=== PATIENT | female | born 1985 | race Caucasian/White ===

== ENCOUNTER → 2016-06-18 | Outpatient (CLI) | payer OTHER ==
[~2016-06-18] MED LIST: BUSP15TA70 PO; CYCL5TAB PO; LEVOIUD; MULT-506 PO; ONDA4TAB46 PO; RIZA10TA18 PO
== END | disposition home or self-care (01) ==
LOC: C.PAPS 12:05
PROVIDERS: ATTEND Obstetrics & Gynecology
DX: Z01.419 Encounter for gynecological examination (general) (routine) without abnormal findings (principal)

== ENCOUNTER 2017-05-20 08:20 | Emergency (ER) | payer OTHER ==
[~2017-05-20] VITALS: Ht 165.1 cm; Wt 85.0 kg
[2017-05-20 08:24] VITALS: Ht 165.1 cm; Wt 85.0 kg
[2017-05-20] MEDS ORDERED: IBUPROFEN 600 MG TAB PO STA (08:33)
--- NOTE | 2017-05-20 09:42 | DIAGNOSTIC IMAGING REPORT ---
R ANKLE MIN 3 VIEWS ROUTINE HISTORY: 32 years-old Female ankle injury acute right ankle pain status post trauma COMPARISON: None available TECHNIQUE: 3 views of the right ankle FINDINGS: Distal tibia, fibula and talus appear intact. No osteochondral defect. 4 mm acute avulsion fracture fragment is noted involving the base of the fifth metatarsal which is displaced approximately 3 mm. Mild associated soft tissue swelling. Mild soft tissue swelling is also noted about the ankle. IMPRESSION: 4 mm acute avulsion fracture involves the base of the fifth metatarsal with associated soft tissue swelling. The above report was generated using voice recognition software. It may contain grammatical, syntax or spelling errors. Electronically signed by: Zeke Thoams M.D. 05/20/2017 9:41 AM Dictated Date/Time: 05/20/2017 9:39 AM
--- NOTE | 2017-05-20 09:53 | EMERGENCY ROOM VISIT NOTE ---
ED Visit Note First contact with patient: 08:29 CHIEF COMPLAINT: Right Ankle injury HISTORY OF PRESENT ILLNESS: This 32-year-old female patient sustained an injury to the right ankle with a twisting, inversion motion ago. Complains of swelling and pain. The patient states he was too painful to bear weight on the right ankle. The patient denies any foot pain or knee pain. The patient denies any prior injury to her right ankle. She has seen Dr. Charity Boston in the past for hand injury. REVIEW OF SYSTEMS: 6 system review was performed and was negative unless stated otherwise in history of present illness. PMH: No prior significant ankle injury. The patient is generally healthy with no chronic medical problems or a history of major surgery. SOCIAL HISTORY: Patient lives with her fianc. The patient denies any tobacco use but admits to occasional alcohol use. PHYSICAL EXAM: Vital Signs: Were reviewed Reviewed Nurse's notes. GENERAL: 32- year-old white female appears in no acute distress. MENTAL STATUS: Alert, oriented, and cooperative. RIGHT ANKLE: The ankle is swollen and tender over the lateral aspect but the skin is intact and there is no ligamentous instability. There is no deformity. The foot and toes are warm and well- perfused. Sensation to pain and light touch is intact. EMERGENCY DEPARTMENT COURSE: The patient was evaluated. The patient was given Motrin 600 mg by mouth for pain. X-ray of the right ankle was ordered interpreted by the radiologist and myself. DIAGNOSTICS:R ANKLE MIN 3 VIEWS ROUTINE HISTORY: 32 years-old Female ankle injury acute right ankle pain status post trauma COMPARISON: None available TECHNIQUE: 3 views of the right ankle FINDINGS: Distal tibia, fibula and talus appear intact. No osteochondral defect. 4 mm acute avulsion fracture fragment is noted involving the base of the fifth metatarsal which is displaced approximately 3 mm. Mild associated soft tissue swelling. Mild soft tissue swelling is also noted about the ankle. IMPRESSION: 4 mm acute avulsion fracture involves the base of the fifth metatarsal with associated soft tissue swelling. The above report was generated using voice recognition software. It may contain grammatical, syntax or spelling errors. Electronically signed by: Zeke Thomas M.D. 05/20/2017 9:41 AM The patient was informed of the findings. The patient was placed in a postop shoe and given crutches. The patient was discharged home in stable condition. DIAGNOSIS: Right fifth metatarsal fracture DISCHARGE INSTRUCTIONS: Ibuprofen 600 mg every 6 hours with food for pain. Ice and elevation as much as possible over the next 24 hours. Wear postop shoe and use crutches for ambulation until evaluated by orthopedics. Call [facility] today for follow-up appointment. Off work until evaluated by orthopedics. Problem List Medical Problems: (1) Chronic urinary tract infection Status: Chronic (2) Migraine variants, not intractable Status: Chronic (3) Urin Tract Infection Nos Status: Resolved (4) Vitamin D deficiency Status: Chronic Current/Historical Medications Scheduled Buspirone Hcl (Buspar), 10 TAB PO BID Rizatriptan Benzoate (Maxalt), 10 MG PO PRN Scheduled PRN Cyclobenzaprine Hcl (Flexeril), 1 TAB PO TID PRN for Muscle Spasms Ondansetron Hcl (Zofran), 4 MG PO Q4H PRN for Nausea Miscellaneous Medications Levonorgestrel (Iud) (Mirena) Allergies Coded Allergies: No Known Allergies (Unverified , 05/20/17) Vital Signs Date Time Temp Pulse Resp B/P (MAP) Pulse Ox O2 Delivery O2 Flow Rate FiO2 05/20/17 08:24 37.0 89 18 129/88 100 Room Air Medications Administered Medications (Trade) Dose Ordered Sig/Radha Route Start Time Stop Time Status Last Admin Dose Admin Ibuprofen (Motrin Tab) 600 mg NOW STAT PO 05/20/17 08:33 05/20/17 08:35 DC 05/20/17 08:51 600 MG Departure Information Referrals RV. Ríos MD (PCP) Patient Instructions My [facility]
[2017-05-20 10:48] VITALS: BP 121/81; PULSE 81; TEMP 37; O2SAT 100
[2017-05-23] MEDS ORDERED: IBUP-1450 PO (08:35)
== END 2017-05-20 10:49 | disposition home or self-care (01) ==
LOC: C.EDB 08:22 → C.EDA 10:49
DX: S92.351A Displaced fracture of fifth metatarsal bone, right foot, initial encounter for closed fracture (principal); X58.XXXA Exposure to other specified factors, initial encounter; Z87.440 Personal history of urinary (tract) infections; Z79.899 Other long term (current) drug therapy

== ENCOUNTER 2017-10-08 22:53 | Emergency (ER) | payer OTHER ==
[~2017-10-08] VITALS: Ht 165.1 cm; Wt 85.9 kg
[~2017-10-08 22:53] MED LIST changes: +IBUP-1450 PO; +LEVO1IUD2; -LEVOIUD; -MULT-506 PO
[2017-10-08 23:07] VITALS: TEMP 37.2; Ht 165.1 cm; Wt 85.9 kg
--- NOTE | 2017-10-08 23:41 | EMERGENCY ROOM VISIT NOTE ---
History Report prepared by Deborah: Macario Hdez Under the Supervision of: Dr. Natalie Mcwilliams D.O. First contact with patient: 23:25 Chief Complaint: ABDOMINAL PAIN Stated Complaint: ABDOMEN PAIN Nursing Triage Summary: Pt c/o abdominal pain the past few days, right side back radiates to rib and lower right abdomen. History of Present Illness The patient is a 32 year old female who presents to the Emergency Room with complaints of constant RLQ abdominal pain beginning today. The patient states that she had back pain two days ago that wrapped around to her right abdomen. She notes that her pain started quickly, which caused her think that she had a kidney stone. She reports that she had eaten a yogurt and a Bryce[employer] cup prior to the onset of her pain. The patient states that her pain then resolved on its own. She notes that when she got home, she ate a rice crispy treat, which seemed to bring her pain back. She reports that she woke up tonight with RLQ abdominal pain. The patient states that she thought she was constipated, and notes that she took stool softener which caused her to have three bowel movements. She also complains of vomiting and frequent burping, but denies any vaginal discharge, diarrhea, urinary symptoms, leg cramping, leg swelling, and fever. She reports that she has a history of anxiety, acid reflux, migraines, and has an IUD placed. The patient states that she gets occasional irregular periods, with her last period being two weeks ago. She notes that she saw her PCP today and has an US scheduled for tomorrow. She reports that many members of her family on her mother's side, including her mother, have had cholecystectomies. She rates her pain as a 4/10. Source of History: patient Onset: today Position: abdomen (RLQ) Symptom Intensity: 4/10 Timing: constant Associated Symptoms: + vomiting, + back pain, No fevers, No diarrhea, No urinary symptoms Note: The patient also complains of frequent burping. She also denies any vaginal discharge, leg cramping, and leg swelling. Review of Systems See HPI for pertinent positives & negatives. A total of 10 systems reviewed and were otherwise negative. Past Medical & Surgical Medical Problems: (1) Acid reflux (2) Anxiety (3) Chronic urinary tract infection (4) IUD (intrauterine device) in place (5) Migraine variants, not intractable (6) Urin Tract Infection Nos (7) Vitamin D deficiency Family History FHx: cholecystectomy Gallbladder disease Social History Smoking Status: Never Smoker Marital Status: in relationship Housing Status: lives with significant other Occupation Status: employed Current/Historical Medications Scheduled Buspirone Hcl (Buspar), 10 TAB PO BID Rizatriptan Benzoate (Maxalt), 10 MG PO PRN Scheduled PRN Cyclobenzaprine Hcl (Flexeril), 1 TAB PO TID PRN for Muscle Spasms Ibuprofen (Motrin), 600 MG PO q4-6 hrs PRN for Pain Ondansetron Hcl (Zofran), 4 MG PO Q4H PRN for Nausea Miscellaneous Medications Levonorgestrel (Iud) (Mirena) Allergies Coded Allergies: No Known Allergies (Unverified , 07/04/17) Physical Exam Vital Signs Date Time Temp Pulse Resp B/P (MAP) Pulse Ox O2 Delivery O2 Flow Rate FiO2 10/09/17 04:15 86 16 118/74 98 Room Air 10/09/17 03:21 90 16 106/69 97 Room Air 10/09/17 01:54 88 18 118/73 100 Room Air 10/09/17 00:28 89 18 122/74 97 Room Air 10/08/17 23:07 37.2 113 18 121/77 97 Room Air Physical Exam HEENT: Head - normocephalic and atraumatic Pupils are equal, round, and reactive to light. Extraocular eye muscles are intact, and sclera are anicteric. Nose - moist nasal mucosa without discharge. Mouth - moist buccal mucosa. Oropharynx is nonerythematous and there is no tonsillar exudate or edema noted. Neck: Supple; no JVD, nuchal rigidity, cervical lymphadenopathy. Heart: Regular rate and rhythm. There is a normal S1 and S2 with no murmurs, clicks, or gallops appreciated. Lungs: Clear to auscultation bilaterally with no wheezes, rales, or rhonchi. Abdomen: Soft, nondistended, with good bowel sounds. There are no palpable pulsatile masses or hepatosplenomegaly. There is no guarding, rigidity, or rebound noted. Pain to palpation of the RUQ and RLQ over McBurney's point. Extremities: No evidence of cyanosis, clubbing, or edema. There are easily palpable peripheral pulses. Skin: warm with good turgor and no rashes, diaphoretic. Medical Decision & Procedures ER Provider Diagnostic Interpretation: Radiology results as stated below per my review and the radiologist's interpretation: US PELVIC/ENDOVAG: Comparison: CT dated 11/26/2012 and ultrasound dated 05/05/11. Retroverted uterus with an intrauterine device within the endometrial cavity. Ovarian flow seen to bilateral ovaries with bilateral follicles. There is a right adnexal mass measuring up to 3.4cm with some areas of increased echogenicity which may reflect a dermoid. Some vascularity seen at the interface with the right ovary. Other possibilities include a pedunculated myoma , hemorrhagic paraovarian cyst or possibly endometrioma. Some complex free fluid seen within the right adnexa. Radiologist: Enoch Mcmillan M.D. US APPENDIX: Comparison: Ultrasound dated 05/05/[address] dated 12/06/12. Appendix not well visualized but possible tubular structure seen measuring up to 6mm. Radiologist: Enoch Mcmillan M.D. US RUQ: Comparison: CT dated 11/26/12. Gallbladder sludge. No gallstones identified. No gallbladder wall thickening. No biliary dilation. The liver and right kidney are unremarkable. Radiologist: Enoch Mcmillan M.D. CT ABDOMEN & PELVIS With Contrast: Comparison: CT 11/26/12. There is a right adnexal 2.8cm dense mass with adjacent hemorrhage within the pelvis. No obvious fat seen. Findings may represent a hemorrhagic cyst or endometrioma given reported negative hCG. The appendix is unremarkable. The liver, gallbladder, right kidney, pancreas, and spleen are unremarkable. Left renal cysts. No evidence of bowel obstruction or colitis. The uterus contains an intrauterine device. Radiologist: Enoch Mcmillan M.D. Laboratory Results 10/08/17 23:30 Red Blood Count 4.74, Mean Corpuscular Volume 87.8, Mean Corpuscular Hemoglobin 31.2, Mean Corpuscular Hemoglobin Concent 35.6, Mean Platelet Volume 9.9, Neutrophils (%) (Auto) 73.2, Lymphocytes (%) (Auto) 18.1, Monocytes (%) (Auto) 7.6, Eosinophils (%) (Auto) 0.5, Basophils (%) (Auto) 0.4, Neutrophils # (Auto) 7.31, Lymphocytes # (Auto) 1.81, Monocytes # (Auto) 0.76, Eosinophils # (Auto) 0.05, Basophils # (Auto) 0.04 10/08/17 23:30 Test 10/08/17 23:30 White Blood Count 9.99 K/uL (4.8-10.8) Red Blood Count 4.74 M/uL (4.2-5.4) Hemoglobin 14.8 g/dL (12.0-16.0) Hematocrit 41.6 % (37-47) Mean Corpuscular Volume 87.8 fL (80-100) Mean Corpuscular Hemoglobin 31.2 pg (25-34) Mean Corpuscular Hemoglobin Concent 35.6 g/dl (32-36) Platelet Count 368 K/uL (130-400) Mean Platelet Volume 9.9 fL (7.4-10.4) Neutrophils (%) (Auto) 73.2 % Lymphocytes (%) (Auto) 18.1 % Monocytes (%) (Auto) 7.6 % Eosinophils (%) (Auto) 0.5 % Basophils (%) (Auto) 0.4 % Neutrophils # (Auto) 7.31 K/uL (1.4-6.5) Lymphocytes # (Auto) 1.81 K/uL (1.2-3.4) Monocytes # (Auto) 0.76 K/uL (0.11-0.59) Eosinophils # (Auto) 0.05 K/uL (0-0.5) Basophils # (Auto) 0.04 K/uL (0-0.2) RDW Standard Deviation 39.3 fL (36.4-46.3) RDW Coefficient of Variation 12.2 % (11.5-14.5) Immature Granulocyte % (Auto) 0.2 % Immature Granulocyte # (Auto) 0.02 K/uL (0.00-0.02) Urine Color YELLOW Urine Appearance CLOUDY (CLEAR) Urine pH 6.5 (4.5-7.5) Urine Specific [place] 1.011 (1.000-1.030) Urine Protein NEG (NEG) Urine Glucose (UA) NEG (NEG) Urine Ketones NEG (NEG) Urine Occult Blood NEG (NEG) Urine Nitrite NEG (NEG) Urine Bilirubin NEG (NEG) Urine Urobilinogen NEG (NEG) Urine Leukocyte Esterase TRACE (NEG) Urine WBC (Auto) 1-5 /hpf (0-5) Urine RBC (Auto) 0-4 /hpf (0-4) Urine Hyaline Casts (Auto) 1-5 /lpf (0-5) Urine Epithelial Cells (Auto) >30 /lpf (0-5) Urine Bacteria (Auto) 2+ (NEG) Urine Test NEG (NEG) Anion Gap 6.0 mmol/L (3-11) Est Creatinine Clear Calc Drug Dose 103.5 ml/min Estimated GFR () 105.1 Estimated GFR (Non- 90.7 BUN/Creatinine Ratio 10.1 (10-20) Calcium Level 9.5 mg/dl (8.5-10.1) Total Bilirubin 0.8 mg/dl (0.2-1) Direct Bilirubin 0.2 mg/dl (0-0.2) Aspartate Amino Transf (AST/SGOT) 19 U/L (15-37) Alanine Aminotransferase (ALT/SGPT) 24 U/L (12-78) Alkaline Phosphatase 86 U/L (45-117) Total Protein 8.1 gm/dl (6.4-8.2) Albumin 4.8 gm/dl (3.4-5.0) Lipase 99 U/L (73-393) Human Chorionic Gonadotropin, Qual NEG (NEG) Laboratory results per my review. Medications Administered Medications (Trade) Dose Ordered Sig/Radha Route Start Time Stop Time Status Last Admin Dose Admin Ketorolac Tromethamine (Toradol Inj) 30 mg NOW STAT IV 10/09/17 02:02 10/09/17 02:03 DC 10/09/17 02:17 30 MG Ondansetron HCl (Zofran Inj) 4 mg NOW STAT IV 10/09/17 02:02 10/09/17 02:03 DC 10/09/17 02:16 4 MG Procedure 0202: Zofran Inj 4mg IV, Toradol Inj 30mg IV ED Course 2330: The patient was evaluated in room C8. A complete history and physical examination were performed. Nursing notes and previous electronic medical records were reviewed. IV lock was established and labs were drawn as above. 0202: Zofran Inj 4mg IV, Toradol Inj 30mg IV 0207: I reevaluated and updated the patient. She experienced a lot of pain during the transvaginal US. 0227: I rechecked the patient. She had relief of her symptoms with Toradol. She is going to CT. 0310: I spoke to [facility]. A serum test was obtained and was negative. 0414: I reevaluated and updated the patient. She will follow up with Dr. Hernandez - [place], [facility] I discussed findings and results with the patient. She verbalized agreement of the treatment plan. The patient was discharged home. Medical Decision The patient is a 32 year old female who presents to the Emergency Room with complaints of constant RLQ abdominal pain beginning today. Differential diagnoses include: cholecystitis, appendicitis, ovarian cyst, ovarian torsion, pyelonephritis, and singles. Lab Results Show: negative. Urine 2+ bacteria. Trace leukocyte esterase. No leukocytosis. Stable H&H. Normal LFTs and lipase. Normal glucose and renal function. Beta hCG negative. This is a 32-year-old female patient who initially had right upper quadrant abdominal pain then seemed to settle in the right lower quadrant of her abdomen. She has never had pain like this in the past. Ultrasounds show that the gallbladder is normal and there is no evidence of ovarian torsion. However , there is a mass noted about the right ovary with some hemorrhage around it. The appendix could not be visualized. The patient went for CT scan of the abdomen and pelvis to better characterize this mass in the right ovary and to look for the appendix. The appendix was normal. It appears there is a 2-3 cm mass on the right ovary cyst with a ovarian cyst or endometrioma with some hemorrhage. Patient was given very specific follow-up instructions with Maribell melara. She should return here to the emergency department if she has worsening symptoms. Medication Reconcilliation Current Medication List: was personally reviewed by me Blood Pressure Screening Patient's blood pressure: Normal blood pressure Blood pressure disposition: Did not require urgent referral Impression Primary Impression: Adnexal pain Additional Impression: Mass of right ovary Scribe Attestation The scribe's documentation has been prepared under my direction and personally reviewed by me in its entirety. I confirm that the note above accurately reflects all work, treatment, procedures, and medical decision making performed by me. Departure Information Dispostion Home / Self-Care Referrals RV. Ríos MD (PCP) Forms HOME CARE DOCUMENTATION FORM, IMPORTANT VISIT INFORMATION Patient Instructions My [facility] Additional Instructions Contact [facility] [employer] for follow up. Use Ibuprofen for pain. Return to the ED for worsening pain Problem Qualifiers
[2017-10-08 23:59] LABS: BASO % 0.4 %; BASO ABS # 0.04 K/uL (0-0.2); EOS % 0.5 %; EOS ABS # 0.05 K/uL (0-0.5); HEMATOCRIT 41.6 % (37-47); HEMOGLOBIN 14.8 g/dL (12.0-16.0); IG# 0.02 K/uL (0.00-0.02); LYMPH % 18.1 %; LYMPH ABS # 1.81 K/uL (1.2-3.4); MEAN CELL VOLUME 87.8 fL (80-100); MEAN CORPUSCULAR HEMOGLOBIN 31.2 pg (25-34); MEAN CORPUSCULAR HGB CONC 35.6 g/dl (32-36); MEAN PLATELET VOLUME 9.9 fL (7.4-10.4); MONO % 7.6 %; MONO ABS # 0.76 K/uL (0.11-0.59); NEUT % 73.2 %; NEUT ABS # 7.31 K/uL (1.4-6.5); PLATELET COUNT 368 K/uL (130-400); RED CELL DISTRIBUTION WIDTH CV 12.2 % (11.5-14.5); RED CELL DISTRIBUTION WIDTH SD 39.3 fL (36.4-46.3); WHITE BLOOD COUNT 9.99 K/uL (4.8-10.8)
[2017-10-09 00:06] LABS: ALBUMIN 4.8 gm/dl (3.4-5.0); CALCIUM 9.5 mg/dl (8.5-10.1); CREATININE 0.86 mg/dl (0.60-1.20); POTASSIUM 3.9 mmol/L (3.5-5.1)
[2017-10-09 00:09] LABS: TOTAL PROTEIN 8.1 gm/dl (6.4-8.2)
[2017-10-09] MEDS ORDERED: ONDANSETRON INJ 2 MG/ML 2 ML VIAL IV STA (02:02)
[2017-10-09] MEDS ORDERED: KETOROLAC TROMETHAMINE 30 MG/ML VIAL IV STA (02:02)
[2017-10-09] MEDS ORDERED: OPTIRAY 320 IV PRN (02:45)
[2017-10-09 04:15] VITALS: BP 118/74; PULSE 86; O2SAT 98
--- NOTE | 2017-10-09 06:50 | DIAGNOSTIC IMAGING REPORT ---
ABDOMEN LIMITED (US) HISTORY: 32 years-old Female eval the appendix acute right lower quadrant abdominal pain and tenderness COMPARISON: CT abdomen and pelvis of same day TECHNIQUE: Multiple real-time sonographic images of the abdominal right lower quadrant were obtained assessing grayscale appearance and color flow FINDINGS: There is a tubular blind-ending structure within the abdominal right lower quadrant suggesting a normal appendix with measures up to 6 mm in transverse dimension. No wall thickening or hyperemia. No echogenic fat, fluid collections or hypoperistaltic bowel. No adenopathy. IMPRESSION: 6 mm tubular blind-ending structure within the abdominal right lower quadrant suggests a normal appendix. The above report was generated using voice recognition software. It may contain grammatical, syntax or spelling errors. Electronically signed by: Zeke Thomas M.D. 10/09/2017 6:49 AM Dictated Date/Time: 10/09/2017 6:46 AM
--- NOTE | 2017-10-09 06:52 | DIAGNOSTIC IMAGING REPORT ---
GALLBLADDER-ABD LIMITED HISTORY: 32 years-old Female eval the gallgladder acute right upper quadrant abdominal pain COMPARISON: CT abdomen and pelvis of same day TECHNIQUE: Multiple real-time sonography images of the abdominal right upper quadrant were obtained assessing grayscale appearance and color flow FINDINGS: Imaged pancreas appears normal with distal body and tail obscured by bowel gas. Liver appears normal without focal mass or intrahepatic biliary ductal dilation. There is mild sludge within the gallbladder lumen without shadowing cholelithiasis, wall thickening or pericholecystic fluid. Sonographic Laird sign is reported as negative. Common bile duct is normal, 3 mm. The imaged right kidney is unremarkable without hydronephrosis. IMPRESSION: 1. Mild gallbladder sludge without cholelithiasis or sonographic evidence of acute cholecystitis. 2. No biliary ductal dilation. The above report was generated using voice recognition software. It may contain grammatical, syntax or spelling errors. Electronically signed by: Zeke Thomas M.D. 10/09/2017 6:51 AM Dictated Date/Time: 10/09/2017 6:49 AM
--- NOTE | 2017-10-09 07:06 | DIAGNOSTIC IMAGING REPORT ---
ABDOMEN AND PELVIS CT WITH IV CONTRAST CT DOSE: 583.77 mGy.cm HISTORY: Acute right lower quadrant abdominal pain eval for appy and look at right ovarian mass TECHNIQUE: Multiaxial CT images of the abdomen and pelvis were performed following the use of intravenous contrast. A dose lowering technique was utilized adhering to the principles of ALARA. COMPARISON STUDY: Right lower quadrant, right upper quadrant and pelvic ultrasound studies of same day, CT abdomen and pelvis 12/06/2012. FINDINGS: Imaged lung bases are clear. There is no pneumatosis or pneumoperitoneum. Imaged inferior cardiac chambers are unremarkable. Gallbladder, liver, spleen, pancreas and adrenal glands are within normal limits. 6 mm low attenuating lesion of the superior pole left kidney suggests renal cyst. No renal calculi or obstructive uropathy. The ureters and bladder are unremarkable. Retroflexed uterus with intrauterine device in place. Mild amount of complex free fluid is noted within the pelvis. Follicular changes about the left ovary. 3.0 x 2.1 cm hyperattenuating lesion of the posterior right adnexal distribution. Aorta is normal in course and caliber. No bulky adenopathy. No bowel obstruction or focal bowel wall thickening. Normal appendix. Soft tissues are unremarkable. Bones appear intact. Mild discogenic degenerative changes with posterior disc ossify complex formation at L5-S1. IMPRESSION: 1. 3.0 x 2.1 cm hyperattenuating lesion of the posterior right adnexum suggests hemorrhagic cyst with mild complex free fluid within the dependent pelvis suggesting hemoperitoneum from cyst rupture. Follow-up pelvic ultrasound in 8 weeks or two menstrual cycles is recommended to exclude progressive abnormality. 2. No bowel obstruction or focal bowel wall thickening. Normal appendix. Electronically signed by: Zeke Thomas M.D. 10/09/2017 7:05 AM Dictated Date/Time: 10/09/2017 6:51 AM
--- NOTE | 2017-10-09 07:15 | DIAGNOSTIC IMAGING REPORT ---
PELVIC ULTRASOUND CLINICAL HISTORY: eval IUD, right ovary for torsion. Pelvic pain. COMPARISON STUDY: Pelvic ultrasound May 05, [address] of the abdomen and pelvis December 06, 2012. TECHNIQUE: Transabdominal and transvaginal sonography of the pelvis was performed. FINDINGS: The uterus measures 6.5 x 3.1 x 4.4 cm and is retroverted. Intrauterine device is appropriately positioned. The left ovary is normal, measuring 3.1 x 1.9 x 3.1 cm. The right ovary measures 2.8 x 1.9 x 2.2 cm. Note is made of a 3.4 x 2.8 x 2.7 cm echogenic right adnexal abnormality which is immediately adjacent to the right ovary and difficult to separate from the right ovary. This contains minimal, if any, color flow. There is small amount of adjacent complex fluid. Color flow is identified within each ovary. IMPRESSION: 1. 3.4 cm echogenic abnormality adjacent to the right ovary with adjacent complex fluid. This may reflect blood clot in the setting of a ruptured hemorrhagic cyst or a hemorrhagic paraovarian cyst. A mass such as dermoid is considered less likely. However, a follow-up pelvic ultrasound in 8 weeks to ensure resolution is recommended. 2. No sonographic evidence of ovarian torsion. 3. Appropriately positioned of IUD. Electronically signed by: Norman Vincent M.D. 10/09/2017 7:14 AM Dictated Date/Time: 10/09/2017 7:07 AM
[2017-10-10] MEDS ORDERED: PANT40TA PO (08:47)
== END 2017-10-09 04:20 | disposition home or self-care (01) ==
LOC: C.EDB 22:54
DX: N83.201 Unspecified ovarian cyst, right side (principal); R10.31 Right lower quadrant pain; R10.11 Right upper quadrant pain; R11.10 Vomiting, unspecified; M54.9 Dorsalgia, unspecified; K21.9 Gastro-esophageal reflux disease without esophagitis; Z97.5 Presence of (intrauterine) contraceptive device; Z79.899 Other long term (current) drug therapy; Z83.79 Family history of other diseases of the digestive system

== ENCOUNTER → 2017-10-09 | Outpatient (CLI) | payer OTHER ==
[~2017-10-09] MED LIST changes: +PANT40TA PO
[2017-10-09 04:54] LABS: BASO % 0.3 %; BASO ABS # 0.03 K/uL (0-0.2); EOS % 0.3 %; EOS ABS # 0.03 K/uL (0-0.5); HEMATOCRIT 39.9 % (37-47); HEMOGLOBIN 14.2 g/dL (12.0-16.0); IG# 0.02 K/uL (0.00-0.02); LYMPH % 23.1 %; MEAN CELL VOLUME 88.7 fL (80-100); MEAN CORPUSCULAR HEMOGLOBIN 31.6 pg (25-34); MEAN CORPUSCULAR HGB CONC 35.6 g/dl (32-36); MEAN PLATELET VOLUME 9.4 fL (7.4-10.4); MONO % 7.7 %; MONO ABS # 0.77 K/uL (0.11-0.59); NEUT % 68.4 %; NEUT ABS # 6.82 K/uL (1.4-6.5); PLATELET COUNT 348 K/uL (130-400); RED CELL DISTRIBUTION WIDTH CV 12.2 % (11.5-14.5); RED CELL DISTRIBUTION WIDTH SD 39.2 fL (36.4-46.3); WHITE BLOOD COUNT 9.97 K/uL (4.8-10.8)
== END | disposition home or self-care (01) ==
LOC: C.LAB 04:36
PROVIDERS: ATTEND Internal Medicine
DX: Z00.00 Encounter for general adult medical examination without abnormal findings (principal); E55.9 Vitamin D deficiency, unspecified; R00.2 Palpitations